=== PATIENT | male | born 1950 | race Two or more races ===

== ENCOUNTER → 2017-07-15 | Outpatient (CLI) | payer MEDICARE ==
--- NOTE | 2017-07-15 17:01 | Diagnostic Imaging Report ---
PROCEDURE: CT CHEST WITHOUT CONTRAST CT scan of the chest WITHOUT intravenous contrast, using standard protocol. TECHNIQUE: The chest was scanned utilizing a multidetector helical scanner from the apex to the level of the adrenal glands. No IV contrast was administered per physician's request. Coronal and sagittal multiplanar reformations were obtained. COMPARISON: None. INDICATIONS: SIMPLE CHRONIC BRONCHITIS FINDINGS: Exam mildly limited by breathing motion artifact in the lung bases. Lines/tubes: None. Lungs and Airways: Multiple linear opacities in the left lower lobe, likely represent subsegmental atelectasis or scarring. Focal atelectatic changes in the left lower lobe secondary to eventration of the left hemidiaphragm (best visualized on sagittal image 111). Somewhat wedge-shaped subpleural opacity posterior to the aorta in the left lower lobe (series 3, image 65 with mild swirling of adjacent vessels and bronchi. Linear opacities in the lateral right upper lobe (series 3, images 54-58 and sagittal image 29-32), likely reflect subsegmental atelectasis or scarring. Mild wall thickening in the central aspect of bronchi of the upper and lower lobes, more prominent in the lower lobes. No consolidation, or masses. Airways are clear, without endobronchial lesions. Pleura: No effusion, or pneumothorax. Heart and mediastinum: Thyroid is unremarkable. Mild to moderate cardiomegaly. Aorta is non-aneurysmal. Main pulmonary artery is enlarged, measuring approximately 3.3 cm. The Lymph nodes: No mediastinal, hilar, or axillary adenopathy. Abdomen: Limited nonenhanced views of the upper abdomen showed no abnormalities in the liver, spleen, pancreas, right kidney or adrenal glands. 2.0 x 1.7 cm simple cyst in the superior pole. The left kidney (series 2, image 110). Bones: No aggressive lytic lesions. Degenerative disc changes in the thoracic spine. Soft tissues are unremarkable. IMPRESSION: 1. mild wall thickening in the central aspect of bronchi in the upper and lower lobes, worse in the latter, likely reflecting sequela of chronic bronchitis. 2. Focal atelectatic changes in the left lower lobe secondary to eventration of the left hemidiaphragm. 3. Wedge-shaped subpleural opacity in the left lower lobe likely represents round atelectasis. Prior films, if available, would be helpful for comparison. If no prior films can be obtained, recommend followup chest CT in 2 months to document resolution or stability. 4. Enlarged pulmonary artery suggesting pulmonary hypertension. London Monterroso M.D. Dictated by: London Monterroso M.D. on 07/15/2017 at 17:02 Electronically approved by: London Monterroso M.D. on 07/15/2017 at 17:02
== END ==
LOC: CT 14:58
PROVIDERS: ATTEND Internal Medicine
DX: J41.0 Simple chronic bronchitis (principal)
CPT/HCPCS: 71250

== ENCOUNTER 2018-02-08 19:37 | Observation (INO) | payer MEDICARE ==
[~2018-02-08] VITALS: Ht 162.6 cm; Wt 66.0 kg
--- OUTSIDE RECORDS SUMMARY | 2018-02-08 19:40 | XMS REPORT | Clinical Summary ---
Author Author SIDRA Medius Organization [facility] [employer] 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 Active sodium bicarbonate 650 MG Take 2 0 tablet tablets by mouth 2 (two) times daily. Active pantoprazole (PROTONIX) Take 40 mg by 0 40 MG tablet mouth daily. Active folic acid (FOLVITE) 1 MG Take 1 mg by 0 tablet mouth daily. Active fenofibrate Take 160 mg 0 (TRIGLIDE,LOFIBRA) 160 MG by mouth tablet daily. Active patiromer calcium Take by mouth 0 sorbitex (VELTASSA) 8.4 daily. gram PwPk Active sodium polystyrene Take 15 g by 0 (KAYEXALATE) 15 gram/60 mouth daily. mL suspension Active Problems Patient Care Coordination Note Cardiology- Dr. Ely [phone] Problem Noted Date Stage 4 chronic kidney disease 12/29/2017 Pre-transplant evaluation for chronic kidney disease 12/29/2017 Secondary hypertension 12/29/2017 Encounters Care Team Description Date Type Specialty Bibiana Nielson RN 01/18/2018 Abstract Transplant Bibiana Nielson RN Pre-transplant evaluation for chronic kidney disease (Primary Dx); Stage 4 chronic kidney disease (HCC); Anemia of renal disease 01/18/2018 Orders Only Transplant Bibiana Nielson RN Committee Review 01/18/2018 Telephone Transplant ProviderEduard MD 01/17/2018 Orders Only Transplant Stage 4 chronic kidney disease (HCC); Pre-transplant evaluation for chronic kidney disease; Anemia of renal disease; Secondary hypertension; Abnormal blood chemistry 01/10/2018 Hospital Radiology Encounter Stage 4 chronic kidney disease (HCC); Pre-transplant evaluation for chronic kidney disease; Anemia of renal disease; Secondary hypertension; Abnormal blood chemistry 01/10/2018 Hospital Radiology Encounter Susan Rodriguez MD Stage 4 chronic kidney disease (HCC); Pre-transplant evaluation for chronic kidney disease; Anemia of renal disease; Secondary hypertension; Abnormal blood chemistry 01/10/2018 Orders Only Lab Susan Rodriguez MD Stage 4 chronic kidney disease (HCC); Pre-transplant evaluation for chronic kidney disease; Anemia of renal disease; Secondary hypertension; Abnormal blood chemistry 01/10/2018 Hospital Cardiology Encounter Susan Rodriguez MD Timmins, Katherine S., MD Pre-transplant evaluation for chronic kidney disease (Primary Dx) 12/29/2017 Evaluation Transplant Susan Rodriguez MD Pre-transplant evaluation for chronic kidney disease (Primary Dx) 12/29/2017 Evaluation Transplant Susan Rodriguez MD 12/29/2017 Evaluation Transplant Susan Rodriguez MD Stage 4 chronic kidney disease (HCC); Pre-transplant evaluation for chronic kidney disease; Anemia of renal disease; Secondary hypertension; Abnormal blood chemistry 12/29/2017 Orders Only Transplant Hepatology Susan Rodriguez MD Newby, Karen, RN Stage 4 chronic kidney disease (HCC); Pre-transplant evaluation for chronic kidney disease; Secondary hypertension 12/29/2017 Office Visit Transplant Susan Rodriguez MD Canceled (Patient) 12/29/2017 Evaluation Transplant ProviderEduard MD 12/29/2017 Orders Only Transplant Felicia Gongora Appointment (Per patients [id number] the patient will not be able to keep his appt today due to his son being sick and his son Josse is the one who will bringh him to the appt. Per Mrs. Cisneros please reschedule the appt to next Wednesday. She's aware the appt has been rescheduled to next Wednesday,12.29.17) 12/22/2017 Telephone Transplant Felicia Gongora Appointment (Per patient daughter in law will be here tomorrow for his appt and she's aware to check in at 7:30 am) 12/21/2017 Telephone Transplant Bibiana Nielson RN Stage 4 chronic kidney disease (HCC) (Primary Dx); Pre-transplant evaluation for chronic kidney disease; Anemia of renal disease; Secondary hypertension; Abnormal blood chemistry 12/15/2017 Orders Only Transplant Danielle Acevedo Kidney Transplant Pre-evaluation 11/18/2017 Telephone Transplant Danielle Acevedo 11/12/2017 Abstract Transplant Danielle Acevedo 11/11/2017 Abstract Transplant after 02/07/2017 Family History Medical History Relation Name Comments No Known Problem Brother No Known Problem Brother No Known Problem Daughter Hypertension Mother Cancer Sister breast No Known Problem Sister No Known Problem Sister No Known Problem Son No Known Problem Son Relation Name Status Comments Brother Alive Brother Alive Daughter Alive Father Mother Sister Alive Sister Alive Sister Alive Son Alive Son Alive Social History Date Tobacco Use Types Packs/Day Years Used Never Smoker Alcohol Use Drinks/Week oz/Week Comments No Sex Assigned at Date Recorded Not on file Industry Job Start Date Occupation Not on file Not on file Not on file Travel End Travel History Travel Start No recent travel history available. Last Filed Vital Signs Time Taken Vital Sign Reading 12/29/2017 12:00 PM CDT Blood Pressure 132/80 12/29/2017 12:00 PM CDT Pulse 56 12/29/2017 12:00 PM CDT Temperature 36.4 C (97.5 F) 12/29/2017 12:00 PM CDT Respiratory Rate 20 - Oxygen Saturation - - Inhaled Oxygen - Concentration 12/29/2017 12:00 PM CDT Weight 64.6 kg (142 lb 8 oz) 12/29/2017 12:00 PM CDT Height 160.8 cm (5' 3.29") 12/29/2017 12:00 PM CDT Body Mass Index 25.01 Plan of Treatment Health Maintenance Due Date Last Done Comments INFLUENZA VACCINE 12/27/2017 Procedures Comments Procedure Name Priority Date/Time Associated Diagnosis TRANSFUSION SERVICE 01/11/2018 REPORT - SCAN 6:00 PM CDT US PELVIS WITH DOPPLER Routine 01/10/2018 Stage 4 chronic kidney 11:42 AM CDT disease (HCC) Pre-transplant evaluation for chronic kidney disease Anemia of renal disease Secondary hypertension Abnormal blood chemistry US ABDOMEN COMPLETE Routine 01/10/2018 Stage 4 chronic kidney 11:28 AM CDT disease (HCC) Pre-transplant evaluation for chronic kidney disease Anemia of renal disease Secondary hypertension Abnormal blood chemistry ECG 12-LEAD Routine 01/10/2018 Stage 4 chronic kidney 10:37 AM CDT disease (HCC) Pre-transplant evaluation for chronic kidney disease Anemia of renal disease Secondary hypertension Abnormal blood chemistry TYPE AND SCREEN, Routine 01/10/2018 Stage 4 chronic kidney AUTOMATED 10:24 AM CDT disease (HCC) Pre-transplant evaluation for chronic kidney disease Anemia of renal disease Secondary hypertension Abnormal blood chemistry LIPID PANEL Routine 01/10/2018 Stage 4 chronic kidney 10:24 AM CDT disease (HCC) Pre-transplant evaluation for chronic kidney disease Anemia of renal disease Secondary hypertension Abnormal blood chemistry TRANSFUSION SERVICE 12/30/2017 REPORT - SCAN 6:04 PM CDT FLOW PRA CLASS I WITH Routine 12/29/2017 Stage 4 chronic kidney REFLEX TO ANTIBODY 11:10 AM CDT disease (HCC) SPECIFICITY Pre-transplant evaluation for chronic kidney disease Anemia of renal disease Secondary hypertension Abnormal blood chemistry FLOW PRA CLASS II WITH Routine 12/29/2017 Stage 4 chronic kidney REFLEX TO ANTIBODY 11:10 AM CDT disease (HCC) SPECIFICITY Pre-transplant evaluation for chronic kidney disease Anemia of renal disease Secondary hypertension Abnormal blood chemistry HLA TYPING CI Routine 12/29/2017 Stage 4 chronic kidney 11:10 AM CDT disease (HCC) Pre-transplant evaluation for chronic kidney disease Anemia of renal disease Secondary hypertension Abnormal blood chemistry HLA TYPING CII Routine 12/29/2017 Stage 4 chronic kidney 11:10 AM CDT disease (HCC) Pre-transplant evaluation for chronic kidney disease Anemia of renal disease Secondary hypertension Abnormal blood chemistry T SPOT TB Routine 12/29/2017 Stage 4 chronic kidney 11:10 AM CDT disease (HCC) Pre-transplant evaluation for chronic kidney disease Anemia of renal disease Secondary hypertension Abnormal blood chemistry CBC W/PLT COUNT & AUTO Routine 12/29/2017 Stage 4 chronic kidney DIFFERENTIAL 11:09 AM CDT disease (HCC) Pre-transplant evaluation for chronic kidney disease Anemia of renal disease Secondary hypertension Abnormal blood chemistry HEMOGLOBIN A1C Routine 12/29/2017 Stage 4 chronic kidney 11:09 AM CDT disease (HCC) Pre-transplant evaluation for chronic kidney disease Anemia of renal disease Secondary hypertension Abnormal blood chemistry URINALYSIS W/ MICROSCOPIC Routine 12/29/2017 Stage 4 chronic kidney 11:09 AM CDT disease (HCC) Pre-transplant evaluation for chronic kidney disease Anemia of renal disease Secondary hypertension Abnormal blood chemistry PT/APTT Routine 12/29/2017 Stage 4 chronic kidney 11:09 AM CDT disease (HCC) Pre-transplant evaluation for chronic kidney disease Anemia of renal disease Secondary hypertension Abnormal blood chemistry PTH, INTACT Routine 12/29/2017 Stage 4 chronic kidney 11:09 AM CDT disease (HCC) Pre-transplant evaluation for chronic kidney disease Anemia of renal disease Secondary hypertension Abnormal blood chemistry CBC W/PLT COUNT & AUTO Routine 12/29/2017 Stage 4 chronic kidney DIFFERENTIAL 11:09 AM CDT disease ([facility]) Pre-transplant evaluation for chronic kidney disease Anemia of renal disease Secondary hypertension Abnormal blood chemistry URINE CULTURE Routine 12/29/2017 Stage 4 chronic kidney 11:09 AM CDT disease ([facility]) Pre-transplant evaluation for chronic kidney disease Anemia of renal disease Secondary hypertension Abnormal blood chemistry BLOOD TYPING, AUTOMATED Routine 12/29/2017 Stage 4 chronic kidney 11:08 AM CDT disease ([facility]) Pre-transplant evaluation for chronic kidney disease Anemia of renal disease Secondary hypertension Abnormal blood chemistry DIRECT AHG (TOMER)/DIRECT Routine 12/29/2017 Stage 4 chronic kidney CAMILO 11:08 AM CDT disease ([facility]) Pre-transplant evaluation for chronic kidney disease Anemia of renal disease Secondary hypertension Abnormal blood chemistry VARICELLA ZOSTER Routine 12/29/2017 Stage 4 chronic kidney ANTIBODY, IGG 11:08 AM CDT disease ([facility]) Pre-transplant evaluation for chronic kidney disease Anemia of renal disease Secondary hypertension Abnormal blood chemistry URIC ACID Routine 12/29/2017 Stage 4 chronic kidney 11:08 AM CDT disease (HCC) Pre-transplant evaluation for chronic kidney disease Anemia of renal disease Secondary hypertension Abnormal blood chemistry RPR Routine 12/29/2017 Stage 4 chronic kidney 11:08 AM CDT disease (HCC) Pre-transplant evaluation for chronic kidney disease Anemia of renal disease Secondary hypertension Abnormal blood chemistry PHOSPHORUS Routine 12/29/2017 Stage 4 chronic kidney 11:08 AM CDT disease (HCC) Pre-transplant evaluation for chronic kidney disease Anemia of renal disease Secondary hypertension Abnormal blood chemistry LACTATE DEHYDROGENASE Routine 12/29/2017 Stage 4 chronic kidney (LDH) 11:08 AM CDT disease (HCC) Pre-transplant evaluation for chronic kidney disease Anemia of renal disease Secondary hypertension Abnormal blood chemistry HIV-1 ANTIGEN WITH Routine 12/29/2017 Stage 4 chronic kidney HIV-1/2 ANTIBODY 11:08 AM CDT disease (HCC) Pre-transplant evaluation for chronic kidney disease Anemia of renal disease Secondary hypertension Abnormal blood chemistry HEPATITIS C ANTIBODY Routine 12/29/2017 Stage 4 chronic kidney 11:08 AM CDT disease (HCC) Pre-transplant evaluation for chronic kidney disease Anemia of renal disease Secondary hypertension Abnormal blood chemistry HEPATITIS B CORE Routine 12/29/2017 Stage 4 chronic kidney ANTIBODY, IGM 11:08 AM CDT disease (HCC) Pre-transplant evaluation for chronic kidney disease Anemia of renal disease Secondary hypertension Abnormal blood chemistry HEPATITIS B SURFACE Routine 12/29/2017 Stage 4 chronic kidney ANTIGEN 11:08 AM CDT disease (HCC) Pre-transplant evaluation for chronic kidney disease Anemia of renal disease Secondary hypertension Abnormal blood chemistry HEPATITIS B SURFACE Routine 12/29/2017 Stage 4 chronic kidney ANTIBODY 11:08 AM CDT disease (HCC) Pre-transplant evaluation for chronic kidney disease Anemia of renal disease Secondary hypertension Abnormal blood chemistry GAMMA GLUTAMYL Routine 12/29/2017 Stage 4 chronic kidney TRANSFERASE (GGT) 11:08 AM CDT disease (HCC) Pre-transplant evaluation for chronic kidney disease Anemia of renal disease Secondary hypertension Abnormal blood chemistry EBV ANTIBODY, IGM Routine 12/29/2017 Stage 4 chronic kidney 11:08 AM CDT disease (HCC) Pre-transplant evaluation for chronic kidney disease Anemia of renal disease Secondary hypertension Abnormal blood chemistry EBV ANTIBODY, IGG Routine 12/29/2017 Stage 4 chronic kidney 11:08 AM CDT disease (HCC) Pre-transplant evaluation for chronic kidney disease Anemia of renal disease Secondary hypertension Abnormal blood chemistry COMPREHENSIVE METABOLIC Routine 12/29/2017 Stage 4 chronic kidney PANEL 11:08 AM CDT disease (HCC) Pre-transplant evaluation for chronic kidney disease Anemia of renal disease Secondary hypertension Abnormal blood chemistry CYTOMEGALOVIRUS ANTIBODY, Routine 12/29/2017 Stage 4 chronic kidney IGM 11:08 AM CDT disease (HCC) Pre-transplant evaluation for chronic kidney disease Anemia of renal disease Secondary hypertension Abnormal blood chemistry CYTOMEGALOVIRUS ANTIBODY, Routine 12/29/2017 Stage 4 chronic kidney IGG 11:08 AM CDT disease (HCC) Pre-transplant evaluation for chronic kidney disease Anemia of renal disease Secondary hypertension Abnormal blood chemistry US RETROPERITONEAL Routine 10/25/[address] CHEST WITHOUT IV Routine 07/15/2017 CONTRAST 2D ECHO W/ DOPPLER Routine 05/27/2017 (CW/PW/COLOR) 2D ECHO W DOPPLER Routine 05/27/2017 (CW/PW/COLOR) - SLMT NM MYOCARDIAL PERFUSION Routine 05/27/2017 SPECT, PHARM(LEXISCAN) after 02/07/2017 Results * TRANSFUSION SERVICE REPORT - SCAN (01/11/2018 6:00 PM CDT) Only the most recent of 2 results within the time period is included. Narrative Performed At * US pelvis with doppler (01/10/2018 11:42 AM CDT) Narrative Performed At FINAL REPORT [facility] Abdominal ultrasound dated 01/10/2018 Clinical information:assess iliac vessels Comment:Real-time transabdominal ultrasound was performed. Liver is normal in size and measures 15.4 cm in length. The echogenicity of the liver is normal.No focal lesion is noted in the liver.Spleen is normal in size without focal abnormality. Gallbladder is contracted. No gallstone is present. No biliary dilatation is seen. Common bile duct measures 2 mm in diameter.Main portal vein measures 8 mm in diameter. Pancreas is unremarkable. Right kidney measures 9.5 x 4.3 x 4.0 cm.Left kidney measures 8.9 x 4.0 x 4.3 cm.Echogenicity of both kidney is increased.No hydronephrosis or solid mass seen in either kidney.No cystis seen in the either kidney. No ascites is present in the abdomen. Abdominal aorta is normal in caliber. IVC and Hepatic veins are patent. Impression: 1. Small echogenic kidneys suggestive of renal parenchymal disease. 2. Otherwise unremarkable abdominal ultrasound. Pelvic ultrasound dated 01/10/2018. COMMENT: Real-time transpelvic ultrasound was performed. Color Doppler and spectral analysis of hepatic vasculature were obtained. The distal abdominal aorta is normal in caliber measuring 1.5. The right common iliac artery measures 0.7 cm. The right external iliac artery measures 0.7. The right internal iliac artery is not visualized. The left common iliac artery measures 1.0 cm. The left external iliac artery measures 1.0 cm. The left internal iliac artery is not visualized. The bilateral common and external iliac veins are patent. IMPRESSION: Unremarkable pelvic vasculature. Signed: Beverly Mosqueda MD Report Verified Date/Time:01/10/2018 18:50:43 Reading Location: [facility] [id number] Ultrasound Reading Room Procedure Note Interface, External Ris In - 01/10/2018 6:52 PM CDT FINAL REPORT Abdominal ultrasound dated 01/10/2018 Clinical information:assess iliac vessels Comment: Real-time transabdominal ultrasound was performed. Liver is normal in size and measures 15.4 cm in length. The echogenicity of the liver is normal. No focal lesion is noted in the liver. Spleen is normal in size without focal abnormality. Gallbladder is contracted. No gallstone is present. No biliary dilatation is seen. Common bile duct measures 2 mm in diameter. Main portal vein measures 8 mm in diameter. Pancreas is unremarkable. Right kidney measures 9.5 x 4.3 x 4.0 cm. Left kidney measures 8.9 x 4.0 x 4.3 cm. Echogenicity of both kidney is increased. No hydronephrosis or solid mass seen in either kidney. No cyst is seen in the either kidney. No ascites is present in the abdomen. Abdominal aorta is normal in caliber. IVC and Hepatic veins are patent. Impression: 1. Small echogenic kidneys suggestive of renal parenchymal disease. 2. Otherwise unremarkable abdominal ultrasound. Pelvic ultrasound dated 01/10/2018. COMMENT: Real-time transpelvic ultrasound was performed. Color Doppler and spectral analysis of hepatic vasculature were obtained. The distal abdominal aorta is normal in caliber measuring 1.5. The right common iliac artery measures 0.7 cm. The right external iliac artery measures 0.7. The right internal iliac artery is not visualized. The left common iliac artery measures 1.0 cm. The left external iliac artery measures 1.0 cm. The left internal iliac artery is not visualized. The bilateral common and external iliac veins are patent. IMPRESSION: Unremarkable pelvic vasculature. Signed: Beverly Mosqueda MD Report Verified Date/Time: 01/10/2018 18:50:43 Reading Location: [facility] [id number] Ultrasound Reading Room Performing Organization Address City/State/Zipcode Phone Number [facility] * US abdomen complete (01/10/2018 11:28 AM CDT) Narrative Performed At FINAL REPORT [facility] Abdominal ultrasound dated 01/10/2018 Clinical information:assess iliac vessels Comment:Real-time transabdominal ultrasound was performed. Liver is normal in size and measures 15.4 cm in length. The echogenicity of the liver is normal.No focal lesion is noted in the liver.Spleen is normal in size without focal abnormality. Gallbladder is contracted. No gallstone is present. No biliary dilatation is seen. Common bile duct measures 2 mm in diameter.Main portal vein measures 8 mm in diameter. Pancreas is unremarkable. Right kidney measures 9.5 x 4.3 x 4.0 cm.Left kidney measures 8.9 x 4.0 x 4.3 cm.Echogenicity of both kidney is increased.No hydronephrosis or solid mass seen in either kidney.No cystis seen in the either kidney. No ascites is present in the abdomen. Abdominal aorta is normal in caliber. IVC and Hepatic veins are patent. Impression: 1. Small echogenic kidneys suggestive of renal parenchymal disease. 2. Otherwise unremarkable abdominal ultrasound. Pelvic ultrasound dated 01/10/2018. COMMENT: Real-time transpelvic ultrasound was performed. Color Doppler and spectral analysis of hepatic vasculature were obtained. The distal abdominal aorta is normal in caliber measuring 1.5. The right common iliac artery measures 0.7 cm. The right external iliac artery measures 0.7. The right internal iliac artery is not visualized. The left common iliac artery measures 1.0 cm. The left external iliac artery measures 1.0 cm. The left internal iliac artery is not visualized. The bilateral common and external iliac veins are patent. IMPRESSION: Unremarkable pelvic vasculature. Signed: Beverly Mosqueda MD Report Verified Date/Time:01/10/2018 18:50:43 Reading Location: [facility] [id number] Ultrasound Reading Room Procedure Note Interface, External Ris In - 01/10/2018 6:52 PM CDT FINAL REPORT Abdominal ultrasound dated 01/10/2018 Clinical information:assess iliac vessels Comment: Real-time transabdominal ultrasound was performed. Liver is normal in size and measures 15.4 cm in length. The echogenicity of the liver is normal. No focal lesion is noted in the liver. Spleen is normal in size without focal abnormality. Gallbladder is contracted. No gallstone is present. No biliary dilatation is seen. Common bile duct measures 2 mm in diameter. Main portal vein measures 8 mm in diameter. Pancreas is unremarkable. Right kidney measures 9.5 x 4.3 x 4.0 cm. Left kidney measures 8.9 x 4.0 x 4.3 cm. Echogenicity of both kidney is increased. No hydronephrosis or solid mass seen in either kidney. No cyst is seen in the either kidney. No ascites is present in the abdomen. Abdominal aorta is normal in caliber. IVC and Hepatic veins are patent. Impression: 1. Small echogenic kidneys suggestive of renal parenchymal disease. 2. Otherwise unremarkable abdominal ultrasound. Pelvic ultrasound dated 01/10/2018. COMMENT: Real-time transpelvic ultrasound was performed. Color Doppler and spectral analysis of hepatic vasculature were obtained. The distal abdominal aorta is normal in caliber measuring 1.5. The right common iliac artery measures 0.7 cm. The right external iliac artery measures 0.7. The right internal iliac artery is not visualized. The left common iliac artery measures 1.0 cm. The left external iliac artery measures 1.0 cm. The left internal iliac artery is not visualized. The bilateral common and external iliac veins are patent. IMPRESSION: Unremarkable pelvic vasculature. Signed: Beverly Mosqueda MD Report Verified Date/Time: 01/10/2018 18:50:43 Reading Location: [facility] [id number] Ultrasound Reading Room Performing Organization Address City/[facility] Phone Number GE RIS * ECG 12 lead (01/10/2018 10:37 AM CDT) Narrative Performed At Ventricular Rate 52 BPM GE MUSE Atrial Rate 52 BPM P-R Interval 144 ms QRS Duration 86 ms Q-T Interval 412 ms QTC Calculation(Bazett) 383 ms P [place] 36 degrees R [place] 45 degrees T [place] 71 degrees Sinus bradycardia Nonspecific T wave abnormality Abnormal ECG No previous ECGs available Confirmed by MD LAI PABLO ([id number]) on 01/10/2018 6:05:24 PM Procedure Note Interface, External Ris In - 01/10/2018 6:05 PM CDT Ventricular Rate 52 BPM Atrial Rate 52 BPM P-R Interval 144 ms QRS Duration 86 ms Q-T Interval 412 ms QTC Calculation(Bazett) 383 ms P [place] 36 degrees R [place] 45 degrees T [place] 71 degrees Sinus bradycardia Nonspecific T wave abnormality Abnormal ECG No previous ECGs available Confirmed by MD LAI PABLO ([id number]) on 01/10/2018 6:05:24 PM Performing Organization Address [facility] Phone Number GE MUSE * Type and Screen, Automated (01/10/2018 10:24 AM CDT) ABO/RH AUTOMATED (BEAKER) O POSITIVE [facility] Ab Scrn NEGATIVE [facility] Specimen Blood Performing Organization Address City/[facility]/Zipcode Phone Number [facility] [address] [place] [address] MEDICAL CENTER * Lipid panel (01/10/2018 10:24 AM CDT) Triglycerides 90 mg/dL [facility] Cholesterol 83 mg/dL [facility] HDL 16 mg/dL [facility] LDL Calculated 49 mg/dL [facility] Specimen Blood Narrative Performed At Triglyceride Reference Range: [facility] Low Risk <150 [facility] [id number] High Risk 200-499 Very High Risk>=500 Cholesterol Reference Range: Low Risk <200 [id number] High Risk>240 HDL Cholesterol Reference Range: Low Risk >=60 High Risk <40 LDL Cholesterol Reference Range: Optimal<100 Near [id number] Szbp350-258 Very High >=190 Performing Organization Address City/[facility] Phone Number [facility] [address] [place], [place] [phone] [facility] * HLA TYPING CII (12/29/2017 11:10 AM CDT) HLA-DR AG1 [address] [facility] HLA TESTING HLA-DR AG2 [address] [facility] HLA TESTING HLA-DR AG3-[address] [facility] HLA TESTING HLA-DR AG3-[address] [facility] HLA TESTING HLA-DR AG4-[address] [facility] HLA TESTING HLA-DR AG4-[address] [facility] HLA TESTING HLA-DR AG5-[address] [facility] HLA TESTING HLA-DR AG5-[address] [facility] HLA TESTING HLA-DQA1 AG 1-[address] [facility] HLA TESTING HLA-DQA1 AG 1-[address] [facility] HLA TESTING HLA-DQB1 AG 1-[address] [facility] HLA TESTING HLA-DQB1 AG 1-[address] [facility] HLA TESTING HLA-DPA1 AG 1-[address] [facility] HLA TESTING HLA-DPA1 AG 1-[address] [facility] HLA TESTING HLA-DPB1 AG 1-1 02:[address] [facility] HLA TESTING HLA-DPB1 AG 1-2 13:[address] [facility] HLA TESTING HLA-AG Notes [facility] HLA TESTING HLA-AG Report Comments [facility] HLA TESTING Specimen Blood Narrative Performed At Disclaimer: [facility] HLA TESTING This test was developed and its performance characteristics determined by the [facility]. It has not been cleared or approved by the U.S. Food and Drug Administration. The FDA has determined that such clearance or approval is not necessary. This test is used for clinical purposes. It should not be regarded as investigational or for research. This laboratory is certified under the Clinical Laboratory Improvement Amendments of 1988 (CLIA-88) as qualified to perform high complexity clinical laboratory testing. Performing Organization Address City/State/[facility] Phone Number [facility] HLA TESTING ONE Stanislav Jose, MS: [id number], [place] [address] CLIA#[id number] CAP#[id number] UNOS#[id number] * HLA TYPING CI (12/29/2017 11:10 AM CDT) HLA-A AG1 [address] [facility] HLA TESTING HLA-A AG2 [address] [facility] HLA TESTING HLA-B AG1 [address] [facility] HLA TESTING HLA-B AG2 [address] [facility] HLA TESTING HLA-C AG1 [address] [facility] HLA TESTING HLA-C AG2 [address] [facility] HLA TESTING HLA-B BW1 [address] [facility] HLA TESTING HLA-B BW2 [address] [facility] HLA TESTING HLA-AG Notes [facility] HLA TESTING HLA-AG Report Comments [facility] HLA TESTING Specimen Blood Narrative Performed At Disclaimer: [facility] HLA TESTING This test was developed and its performance characteristics determined by the [facility]. It has not been cleared or approved by the U.S. Food and Drug Administration. The FDA has determined that such clearance or approval is not necessary. This test is used for clinical purposes. It should not be regarded as investigational or for research. This laboratory is certified under the Clinical Laboratory Improvement Amendments of 1988 (CLIA-88) as qualified to perform high complexity clinical laboratory testing. Performing Organization Address City/[facility] Phone Number [facility] HLA TESTING ONE Stanislav Garcia, MS: [id number], [place] [address] CLIA#[id number] CAP#[id number] UNOS#[id number] * FLOW PRA CLASS II WITH REFLEX TO ANTIBODY SPECIFICITY (12/29/2017 11:10 AM CDT) Flow Class II Percent [address] [facility] HLA TESTING Positive Flow Class Report [facility] HLA TESTING Comments Specimen Blood Narrative Performed At Disclaimer: [facility] HLA TESTING This test was developed and its performance characteristics determined by the [facility]. It has not been cleared or approved by the U.S. Food and Drug Administration. The FDA has determined that such clearance or approval is not necessary. This test is used for clinical purposes. It should not be regarded as investigational or for research. This laboratory is certified under the Clinical Laboratory Improvement Amendments of 1988 (CLIA-88) as qualified to perform high complexity clinical laboratory testing. Performing Organization Address City/State/[facility]code Phone Number [facility] HLA TESTING ONE Stanislav Garcia, MS: [id number], [place] [address] CLIA#[id number] CAP#[id number] UNOS#[id number] * FLOW PRA CLASS I WITH REFLEX TO ANTIBODY SPECIFICITY (12/29/2017 11:10 AM CDT) Flow Class I Percent [address] [facility] HLA TESTING Positive Flow Class Report [facility] HLA TESTING Comments Specimen Blood Narrative Performed At Disclaimer: [facility] HLA TESTING This test was developed and its performance characteristics determined by the [facility]. It has not been cleared or approved by the U.S. Food and Drug Administration. The FDA has determined that such clearance or approval is not necessary. This test is used for clinical purposes. It should not be regarded as investigational or for research. This laboratory is certified under the Clinical Laboratory Improvement Amendments of 1988 (CLIA-88) as qualified to perform high complexity clinical laboratory testing. Performing Organization Address City/[facility] Phone Number [facility] HLA TESTING ONE Stanislav Garcia, MS: [id number], [place] [address] CLIA#[id number] CAP#[id number] UNOS#[id number] * T Spot TB (12/29/2017 11:10 AM CDT) T-Spot TB Negative [facility] Neg Ctrl Spot Count 0 [facility] Panel A Spot 0 [facility] Panel B Spot 0 [facility] Pos Ctrl Spot Ct 0 [facility] Scan Result [facility] Specimen Blood Narrative Performed At Performing Organization Address City/[facility] Phone Number [facility] [address] [place] [address] LABORATORIES 100 * PT/aPTT (12/29/2017 11:09 AM CDT) Protime 15.8 (H) 11.7 - 14.7 seconds [facility] INR 1.3 <=5.9 [facility] PTT 28.8 22.5 - 36.0 seconds [facility] Specimen Blood Narrative Performed At RECOMMENDED COUMADIN/WARFARIN INR THERAPY RANGES [facility] STANDARD DOSE: 2.0 - 3.0 Includes: PROPHYLAXIS for venous thrombosis, [facility] systemic embolization; TREATMENT for venous thrombosis and/or pulmonary embolus. HIGH RISK: Target INR is 2.5-3.5 for patients with mechanical heart valves. Performing Organization Address [facility] Phone Number [facility] [address] [place] [address] MEDICAL CENTER * CBC with platelet count + automated diff (12/29/2017 11:09 AM CDT) WBC 6.2 3.5 - 10.5 K/L [facility] RBC 2.80 (L) 4.63 - 6.08 M/L [facility] Hemoglobin 8.5 (L) 13.7 - 17.5 GM/DL [facility] Hematocrit 28.0 (L) 40.1 - 51.0 % [facility] MCV 100.0 (H) 79.0 - 92.2 fL [facility] MCH 30.4 25.7 - 32.2 pg [facility] MCHC 30.4 (L) 32.3 - 36.5 GM/DL [facility] RDW 16.4 (H) 11.6 - 14.4 % [facility] Platelets 206 150 - 450 K/CU MM [facility] MPV 11.9 9.4 - 12.4 fL [facility] nRBC 0 0 - 0 /100 WBC [facility] % Neutros 67 % [facility] % Lymphs 20 % [facility] % Monos 6 % [facility] % Eos 6 % [facility] % Baso 1 % [facility] # Neutros 4.13 1.78 - 5.38 K/L [facility] # Lymphs 1.24 (L) 1.32 - 3.57 K/L [facility] # Monos 0.35 0.30 - 0.82 K/L [facility] # Eos 0.36 0.04 - 0.54 K/L [facility] # Baso 0.06 0.01 - 0.08 K/L [facility] Immature 0 0 - 1 % [facility] Granulocytes-Relative [facility] Specimen Blood Performing Organization Address City/[facility]/Zipcode Phone Number [facility] [address] [place] [address] [facility] * Urinalysis, Routine (12/29/2017 11:09 AM CDT) Color, UA Light Yellow [facility] Clarity, UA Clear [facility] Specific Fisk, UA 1.009 1.001 - 1.035 [facility] pH, UA 5.5 5.0 - 8.0 [facility] Protein, UA 30 mg/dL (A) Negative [facility] Glucose, UA Negative Negative [facility] Ketones, UA Negative Negative [facility] Bilirubin, UA Negative Negative [facility] Blood, UA Negative Negative [facility] Nitrite, UA Negative Negative [facility] Leukocytes, UA Negative Negative [facility] Urobilinogen, UA 0.2 0.2 - 1.0 mg/dL [facility] RBC, UA 0 /HPF [facility] WBC, UA <1 /HPF [facility] Bacteria, UA Occasional [facility] Mucus Occasional [facility] Hyaline Casts, UA 2 /LPF [facility] Specimen Source [facility] Specimen Urine Performing Organization Address [facility]/Zipcode Phone Number [facility] [address] [place], [place] [phone] [place] [address] * Urine Culture (12/29/2017 11:09 AM CDT) Result No growth [facility] Specimen Urine - Urine, Unspecified Source Performing Organization Address [facility] Phone Number [phone] [place] [address] * PTH, Intact (12/29/2017 11:09 AM CDT) PTH 188.6 (H) 8.5 - 72.5 pg/mL [facility] Specimen Blood Performing Organization Address [facility] Phone Number [address] * Hemoglobin A1c (12/29/2017 11:09 AM CDT) Hemoglobin A1C 4.2 (L) 4.3 - 6.1 % [facility] Specimen Blood Performing Organization Address City/[facility] Phone Number [phone] [place] [address] * HIV-1 Antigen with HIV-1/2 Antibody (12/29/2017 11:08 AM CDT) HIV-1 Antigen with HIV NON-REACTIVE Nonreactive [facility] 1&2 Antibody [facility] Specimen Blood Performing Organization Address City/[facility] Phone Number [address] * Hepatitis C Antibody (12/29/2017 11:08 AM CDT) Hepatitis C Ab NON-REACTIVE Nonreactive [facility] Specimen Blood Performing Organization Address [facility] Phone Number [address] * Cytomegalovirus antibody, IgM (12/29/2017 11:08 AM CDT) CMV IGM Negative Negative, Equivocal [facility] Specimen Blood Narrative Performed At CMV IgM Result Interpretation: [facility] </=0.8 Al Negative [facility] 0.9-1.0 Al Equivocal >/=1.1 Al Positive Performing Organization Address City/[facility] Phone Number [address] * Hepatitis B core antibody, IgM (12/29/2017 11:08 AM CDT) Hep B C IgM NON-REACTIVE Nonreactive [facility] Specimen Blood Performing Organization Address [facility] Phone Number [address] * EBV-VCA antibody, IgM (12/29/2017 11:08 AM CDT) GERARDO LEVINE VIRAL CAPSID Negative Negative, Equivocal [facility] ANTIGEN IGM [facility] Specimen Blood Narrative Performed At Gerardo Levine Viral Capsid Antigen IgM Result Interpretation: [facility] </=0.8 Al Negative [facility] 0.9-1.0 Al Equivocal >/=1.1 Al Positive Performing Organization Address [facility] Phone Number [address] * EBV-VCA antibody, IgG (12/29/2017 11:08 AM CDT) GERARDO LEVINE VIRAL CAPSID Positive (A) Negative, Equivocal [facility] ANTIGEN IGG [facility] Specimen Blood Narrative Performed At Gerardo Levine Viral Capsid Antigen IgG Result Interpretation: [facility] </=0.8 Al Negative [facility] 0.9-1.0 Al Equivocal >/=1.1 Al Positive Performing Organization Address [facility]code Phone Number [address] * Blood typing, automated (12/29/2017 11:08 AM CDT) ABO/RH AUTOMATED (BEAKER) O POSITIVE [facility] Specimen Blood Performing Organization Address City/[facility]code Phone Number [phone] [place] [address] * RPR (12/29/2017 11:08 AM CDT) RPR Nonreactive Nonreactive [facility] Specimen Blood Performing Organization Address [facility] Phone Number [phone] [place] [address] * Hepatitis B surface antibody (12/29/2017 11:08 AM CDT) Hep B S Ab 19.5 (H) <8.0 mIU/mL [facility] Specimen Blood Performing Organization Address [facility] Phone Number [address] * Hepatitis B surface antigen (12/29/2017 11:08 AM CDT) hepatitis B Surface Ag NON-REACTIVE Nonreactive [facility] Specimen Blood Performing Organization Address [facility] Phone Number [address] * Cytomegalovirus antibody, IgG (12/29/2017 11:08 AM CDT) CYTOMEGALOVIRUS, IGG Positive (A) Negative, Equivocal [facility] Specimen Blood Narrative Performed At CMV IgG Result Interpretation: [facility] </=0.8 Al Negative [facility] 0.9-1.0 Al Equivocal >/=1.1 AlPositive Performing Organization Address [facility] Phone Number [address] * Direct AHG (TOMER)/Direct Camilo (12/29/2017 11:08 AM CDT) Direct AHG-IGG NEGATIVE [facility] Direct AHG-C3B, C3D NEGATVIE [facility] Specimen Blood Performing Organization Address [facility]/State/Zipcode Phone Number [address] * Varicella Zoster Antibody, IgG (12/29/2017 11:08 AM CDT) Varicella IgG 4.1 [facility] Specimen Blood Narrative Performed At VARICELLA ZOSTER RESULT INTERPRETATIONS: [facility] <=0.8 AlNonreactive:Presumed non-immune to VZV [facility] 0.9-1.0 AlEquivocal >=1.1 AlReactive:Presumed immune to VZV Performing Organization Address City/[facility] Phone Number [address] * Uric Acid (12/29/2017 11:08 AM CDT) Uric Acid 8.7 (H) 2.6 - 7.2 mg/dL [facility] Specimen Blood Performing Organization Address City/[facility] Phone Number [address] * Phosphorus (12/29/2017 11:08 AM CDT) Phosphorus 3.2 2.3 - 4.7 mg/dL [facility] Specimen Blood Performing Organization Address City/[facility] Phone Number [address] * Lactate Dehydrogenase (LDH) (12/29/2017 11:08 AM CDT) LDH 210 125 - 220 U/L [facility] Specimen Blood Performing Organization Address City/[facility] Phone Number [address] * Gamma Glutamyl Transferase (GGT) (12/29/2017 11:08 AM CDT) GGT 21 9 - 64 U/L [facility] Specimen Blood Performing Organization Address City/[facility] Phone Number [place] [address] [place] [address] [facility] * Comprehensive metabolic panel (12/29/2017 11:08 AM CDT) Protein, Total 6.5 6.0 - 8.3 gm/dL [facility] Albumin 3.8 3.5 - 5.0 g/dL [facility] Alkaline Phosphatase 45 40 - 150 U/L [facility] Total Bilirubin 0.6 0.2 - 1.2 mg/dL [facility] Sodium 136 136 - 145 meq/L [facility] Potassium 5.5 (H) 3.5 - 5.1 meq/L [facility] Chloride 116 (H) 98 - 107 meq/L [facility] CO2 14 (L) 22 - 29 meq/L [facility] BUN 25 (H) 7 - 21 mg/dL [facility] Creatinine 4.05 (H) 0.57 - 1.25 mg/dL [facility] Glucose 97 70 - 105 mg/dL [facility] Calcium 9.3 8.4 - 10.2 mg/dL [facility] AST 52 (H) 5 - 34 U/L [facility] ALT 30 6 - 55 U/L [facility] EGFR 15Comment: ESTIMATED GFR IS mL/min/1.73 sq m [facility] NOT ACCURATE CREATININE [facility] CLEARANCE IN PREDICTING GLOMERULAR FILTRATION RATE. ESTIMATED GFR IS NOT APPLICABLE FOR DIALYSIS PATIENTS. Specimen Blood Performing Organization Address City/State/Zipcode Phone Number [place] [phone] [place], [place] [phone] [facility] * Ultrasound retroperitoneal complete (10/25/2017) Narrative Performed At * CT chest without IV contrast (07/15/2017) Narrative Performed At * 2D Echo W/Doppler(CW/PW/Color) (05/27/2017) Narrative Performed At * NM myocardial perfusion SPECT,pharm(LEXISCAN) (05/27/2017) Narrative Performed At * 2D echo w doppler (CW/PW/color) - SL[facility] (05/27/2017) Narrative Performed At after 02/07/2017 Insurance Payer Benefit Subscriber ID Type Phone Address Plan / Group MEDICARE MEDICARE A xxxxxxxxxxx Medicare B MEDICAID MEDICAID xxxxxxxxx [place]
--- OUTSIDE RECORDS SUMMARY | 2018-02-08 19:41 | XMS REPORT ---
Author Author [facility] Address Unknown Phone Unavailable Care Team Providers Care Freelance Data Entry Name Role Phone Baldomero IRWIN Unavailable Unavailable Willam MINAYA Unavailable Unavailable Problems This patient has no known problems. Allergies, Adverse Reactions, Alerts This patient has no known allergies or adverse reactions. Medications This patient has no known medications. Results Test Description Test Time Test Comments Text Results Atomic Results Result Comments U/S, ABDOMINAL, COMPLETE 2018-01-10 18:50:00 Reason for Exam:->pre transplant evaluation FINAL REPORT Abdominal ultrasound dated 01/10/2018 Clinical [...] Small echogenic kidneys suggestive of renal parenchymal disease.2. Otherwise unremarkable abdom inal ultrasound. Pelvic ultrasound dated 01/10/2018. COMMENT: Real-time [...] and external iliac veins are patent. IMPRESSION: Un remarkable pelvic vasculature. Signed: Beverly Mosquedaort Verified Date/Time: 01/10/2018 18:50:43 Reading Location: [address] Ultrasound Reading Room U/S, PELVIS, WITH DOPPLER 2018-01-10 18:50:00 Reason for Exam:->assess iliac vessels FINAL REPORT Abdominal ultrasound dated 01/10/2018 Clinical [...] Small echogenic kidneys suggestive of renal parenchymal disease.2. Otherwise unremarkable abdom inal ultrasound. Pelvic ultrasound dated 01/10/2018. COMMENT: Real-time [...] and external iliac veins are patent. IMPRESSION: Un remarkable pelvic vasculature. Signed: Beverly Mosqueda Verified Date/Time: 01/10/2018 18:50:43 Reading Location: [facility] [id number] Ultrasound Reading Room D PANEL 2018-01-10 11:11:00 TRIGLYCERIDES (BEAKER) (test uawd=211) 90 mg/dL CHOLESTEROL (BEAKER) (test gweq=408) 83 mg/dL HDL CHOLESTEROL (BEAKER) (test scny=064) 16 mg/dL LDL CHOLESTEROL CALCULATED (BEAKER) (test rpic=020) 49 mg/dL Triglyceride Reference Range: Low Risk <150 Borderline 150-199 High Risk 200-499 Very High Risk >=500Cholesterol Reference Range: Low Risk <200 Borderline 200-239 High Risk >240HDL Cholesterol Reference Range: Low Risk >=60 High Risk <40LDL Cholesterol Reference Range: Optimal <100 Near Optimal 100-129 Borderline 130-159 High 160-189 Very High >=190 RPR 2017-12-31 08:39:00* Test Item Value Reference Range Comments RPR SCREEN (BEAKER) (test bgfo=392) Nonreactive Nonreactive URINE [id number] 07:22:00* Test Item Value Reference Range Comments CULTURE (BEAKER) (test ohtl=6016) No growth CYTOMEGALOVIRUS ANTIBODY, [id number] 15:14:00* Test Item Value Reference Range Comments CYTOMEGALOVIRUS, IGG (BEAKER) (test oslm=5317) Positive Negative, Equivocal CMV IgG Result Interpretation: </=0.8 Al Negative 0.9-1.0 Al Equivocal >/=1.1 Al PositiveCYTOMEGALOVIRUS ANTIBODY, [id number] 15:14:00* Test Item Value Reference Range Comments CYTOMEGALOVIRUS IGM ANTIBODY (BEAKER) (test agqe=8124) Negative Negative, Equivocal CMV IgM Result Interpretation: </=0.8 Al Negative 0.9-1.0 Al Equivocal > /=1.1 Al PositiveEBV ANTIBODY, [id number] 15:14:00* Test Item Value Reference Range Comments ZIGGY ISLAS VIRAL CAPSID ANTIGEN IGG (BEAKER) (test yqfy=7385) Positive Negative, Equivocal Ziggy Islas Viral Capsid Antigen IgG Result Interpretation: </=0.8 Al Negative 0.9-1.0 Al Equivocal >/=1.1 Al PositiveEBV ANTIBODY, [id number] 15:14:00* Test Item Value Reference Range Comments ZIGGY ISLAS VIRAL CAPSID ANTIGEN IGM (BEAKER) (test jxwd=6373) Negative Negative, Equivocal Ziggy Islas Viral Capsid Antigen IgM Result Interpretation: </=0.8 Al Negative 0.9-1.0 Al Equivocal >/=1.1 Al PositiveVARICELLA ZOSTER ANTIBODY, [id number] 13:57:00* Test Item Value Reference Range Comments VARICELLA ZOSTER IGG (AL) (BEAKER) (test vjkf=4824) 4.1 VARICELLA ZOSTER RESULT INTERPRETATIONS: <=0.8 Al Nonreactive: Presumed non-immune to VZV 0.9-1.0 Al Equivocal >=1.1 Al Reactive: Presumed immune to VZVCOMPREHENSIVE METABOLIC [id number] 13:11:00* Test Item Value Reference Range Comments TOTAL PROTEIN (BEAKER) (test hjqp=068) 6.5 gm/dL 6.0-8.3 ALBUMIN (BEAKER) (test bxvc=6391) 3.8 g/dL 3.5-5.0 ALKALINE PHOSPHATASE (BEAKER) (test xaws=404) 45 U/L 40-150 BILIRUBIN TOTAL (BEAKER) (test ntzr=901) 0.6 mg/dL 0.2-1.2 SODIUM (BEAKER) (test ogtg=043) 136 meq/L 136-145 POTASSIUM (BEAKER) (test xfzx=049) 5.5 meq/L 3.5-5.1 CHLORIDE (BEAKER) (test npqf=583) 116 meq/L 98-107 CO2 (BEAKER) (test cngi=426) 14 meq/L 22-29 BLOOD UREA NITROGEN (BEAKER) (test odiv=492) 25 mg/dL 7-21 CREATININE (BEAKER) (test luvb=027) 4.05 mg/dL 0.57-1.25 GLUCOSE RANDOM (BEAKER) (test bany=851) 97 mg/dL 70-105 CALCIUM (BEAKER) (test jnrl=765) 9.3 mg/dL 8.4-10.2 AST (SGOT) (BEAKER) (test zjkf=274) 52 U/L 5-34 ALT (SGPT) (BEAKER) (test rimj=029) 30 U/L 6-55 EGFR (BEAKER) (test zppo=2030) 15 mL/min/1.73 sq m ESTIMATED GFR IS NOT ACCURATE CREATININE CLEARANCE IN PREDICTING GLOMERULAR FILTRATION RATE. ESTIMATED GFR IS NOT APPLICABLE FOR DIALYSIS PATIENTS. HEPATITIS B SURFACE [id number] 13:01:00* Test Item Value Reference Range Comments HEPATITIS B SURFACE ANTIGEN (2) (BEAKER) (test vhyz=3600) Nonreactive Nonreactive HEPATITIS B SURFACE [id number] 13:01:00* Test Item Value Reference Range Comments HEPATITIS B SURFACE ANTIBODY (BEAKER) (test flsn=009) 19.5 mIU/mL <8.0 HEPATITIS B CORE ANTIBODY, [id number] 13:01:00* Test Item Value Reference Range Comments HEPATITIS B CORE IGM ANTIBODY (BEAKER) (test dsjq=736) Nonreactive Nonreactive HEPATITIS C [id number] 13:01:00* Test Item Value Reference Range Comments HEPATITIS C ANTIBODY (BEAKER) (test ahbv=183) Nonreactive Nonreactive HIV-1 ANTIGEN WITH HIV-1/2 [id number] 13:01:00* Test Item Value Reference Range Comments HIV-1 ANTIGEN WITH HIV 1\T\2 ANTIBODY (2) (BEAKER) (test xekp=3093) Nonreactive Nonreactive URINALYSIS W/ [id number] 12:53:00* Test Item Value Reference Range Comments COLOR (BEAKER) (test atdb=927) Light Yellow CLARITY (BEAKER) (test tqnb=908) Clear SPECIFIC GRAVITY UA (BEAKER) (test vlbb=521) 1.009 1.001-1.035 PH UA (BEAKER) (test szfe=802) 5.5 5.0-8.0 PROTEIN UA (BEAKER) (test gjfl=528) 30 mg/dL Negative GLUCOSE UA (BEAKER) (test cdbh=245) Negative Negative KETONES UA (BEAKER) (test ctlh=176) Negative Negative BILIRUBIN UA (BEAKER) (test bfsc=984) Negative Negative BLOOD UA (BEAKER) (test mqei=723) Negative Negative NITRITE UA (BEAKER) (test occj=316) Negative Negative LEUKOCYTE ESTERASE UA (BEAKER) (test youc=852) Negative Negative UROBILINOGEN UA (BEAKER) (test cvjb=234) 0.2 mg/dL 0.2-1.0 RBC UA (BEAKER) (test qrxn=548) 0 /HPF WBC UA (BEAKER) (test svtc=148) < /HPF BACTERIA (BEAKER) (test mxdw=498) Occasional MUCUS (BEAKER) (test bhrq=6016) Occasional HYALINE CASTS (BEAKER) (test iubn=874) 2 /LPF SOURCE(BEAKER) (test makc=4481) URIC [id number] 12:50:00* Test Item Value Reference Range Comments URIC ACID (BEAKER) (test tkhe=075) 8.7 mg/dL 2.6-7.2 [id number] 12:50:00* Test Item Value Reference Range Comments PHOSPHORUS (BEAKER) (test bvha=419) 3.2 mg/dL 2.3-4.7 GAMMA GLUTAMYL TRANSFERASE (GGT)2017-12-29 12:50:00* Test Item Value Reference Range Comments GAMMA GLUTAMYL TRANSFERASE (BEAKER) (test irsn=281) 21 U/L 9-64 LACTATE DEHYDROGENASE (LDH)2017-12-29 12:50:00* Test Item Value Reference Range Comments LACTATE DEHYDROGENASE (BEAKER) (test bzvv=646) 210 U/L 125-220 PTH, [id number] 12:43:00* Test Item Value Reference Range Comments PARATHYROID HORMONE INTACT (BEAKER) (test euuh=698) 188.6 pg/mL 8.5-72.5 HEMOGLOBIN [id number] 12:41:00* Test Item Value Reference Range Comments HEMOGLOBIN A1C (BEAKER) (test xgvz=930) 4.2 % 4.3-6.1 [id number] 12:26:00* Test Item Value Reference Range Comments PROTIME (BEAKER) (test xksn=565) 15.8 seconds 11.7-14.7 INR (BEAKER) (test olgj=243) 1.3 <=5.9 PARTIAL THROMBOPLASTIN TIME (BEAKER) (test hsdk=703) 28.8 seconds 22.5-36.0 RECOMMENDED COUMADIN/WARFARIN INR THERAPY RANGESSTANDARD DOSE: 2.0 - 3.0 Inclu ivonne: PROPHYLAXIS for venous thrombosis, systemic embolization; TREATMENT for chica ous thrombosis and/or pulmonary embolus.HIGH RISK: Target INR is 2.5-3.5 for pat ients with mechanical heart valves.CBC W/PLT COUNT & AUTO [id number] 12:19:00* Test Item Value Reference Range Comments WHITE BLOOD CELL COUNT (BEAKER) (test duds=195) 6.2 K/ L 3.5-10.5 RED BLOOD CELL COUNT (BEAKER) (test pptl=118) 2.80 M/ L 4.63-6.08 HEMOGLOBIN (BEAKER) (test bwxo=551) 8.5 GM/DL 13.7-17.5 HEMATOCRIT (BEAKER) (test kifr=751) 28.0 % 40.1-51.0 MEAN CORPUSCULAR VOLUME (BEAKER) (test vybx=556) 100.0 fL 79.0-92.2 MEAN CORPUSCULAR HEMOGLOBIN (BEAKER) (test vmqr=018) 30.4 pg 25.7-32.2 MEAN CORPUSCULAR HEMOGLOBIN CONC (BEAKER) (test rddx=979) 30.4 GM/DL 32.3-36.5 RED CELL DISTRIBUTION WIDTH (BEAKER) (test hpvz=583) 16.4 % 11.6-14.4 PLATELET COUNT (BEAKER) (test tmnr=583) 206 K/CU MM 150-450 MEAN PLATELET VOLUME (BEAKER) (test pqng=936) 11.9 fL 9.4-12.4 NUCLEATED RED BLOOD CELLS (BEAKER) (test lcsb=651) 0 /100 WBC 0-0 NEUTROPHILS RELATIVE PERCENT (BEAKER) (test bndw=410) 67 % LYMPHOCYTES RELATIVE PERCENT (BEAKER) (test vhqz=766) 20 % MONOCYTES RELATIVE PERCENT (BEAKER) (test bxtk=670) 6 % EOSINOPHILS RELATIVE PERCENT (BEAKER) (test hkcd=154) 6 % BASOPHILS RELATIVE PERCENT (BEAKER) (test triq=481) 1 % NEUTROPHILS ABSOLUTE COUNT (BEAKER) (test kirz=461) 4.13 K/ L 1.78-5.38 LYMPHOCYTES ABSOLUTE COUNT (BEAKER) (test olhe=377) 1.24 K/ L 1.32-3.57 MONOCYTES ABSOLUTE COUNT (BEAKER) (test fnfz=227) 0.35 K/ L 0.30-0.82 EOSINOPHILS ABSOLUTE COUNT (BEAKER) (test yvbr=224) 0.36 K/ L 0.04-0.54 BASOPHILS ABSOLUTE COUNT (BEAKER) (test casy=661) 0.06 K/ L 0.01-0.08 IMMATURE GRANULOCYTES-RELATIVE PERCENT (BHANU) (test jspl=8408) 0 % 0-[address] [facility] [address] [address] Patient Name: COLLEEN KRAMER MR #: [id number] : 1950 Age/Sex: 66/M Req #: [id number] Adm Physician: Ordered by: GER MINAYA MD Report #: [id number] Location: CT Room/Bed: Procedure: [id number] CT/CT CHEST WO Exam Date: 07/15/17 Exam Time: 1500 REPORT STATUS: Signed PROCEDURE: CT CHEST WITHOUT CONTRAST CT scan of the chest WITHOUT intraveno us contrast, using standard protocol. TECHNIQUE: The chest was scanne d utilizing a multidetector helical scanner from the apex to the level of the adrenal glands. No IV contrast was administered per physician's request. Co max and sagittal multiplanar reformations were obtained. COMPARISON: None. INDICATIONS: SIMPLE CHRONIC BRONCHITIS FINDINGS: Exam mi ldly limited by breathing motion artifact in the lung bases. Lines/tube s: None. Lungs and Airways: Multiple linear opacities in the left lower l obe, likely represent subsegmental atelectasis or scarring. Focal atelectat ic changes in the left lower lobe secondary to eventration of the left hemidi aphragm (best visualized on sagittal image 111). Somewhat wedge-shaped subp leural opacity posterior to the aorta in the left lower lobe (series 3, image 65 with mild swirling of adjacent vessels and bronchi. Linear opacities in the lateral right upper lobe (series 3, images 54-58 and sagittal image 29-3 2), likely reflect subsegmental atelectasis or scarring. Mild wall thickeni ng in the central aspect of bronchi of the upper and lower lobes, more promin ent in the lower lobes. No consolidation, or masses. Airways are clear, with out endobronchial lesions. Pleura: No effusion, or pneumothorax. He art and mediastinum: Thyroid is unremarkable. Mild to moderate cardiomegaly. Aorta is non-aneurysmal. Main pulmonary artery is enlarged, measuring approxi mately 3.3 cm. The Lymph nodes: No mediastinal, hilar, or axillary adenopa thy. Abdomen: Limited nonenhanced views of the upper abdomen showed no abno rmalities in the liver, spleen, pancreas, right kidney or adrenal glands. 2.0 x 1.7 cm simple cyst in the superior pole. The left kidney (series 2, image 110). Bones: No aggressive lytic lesions. Degenerative disc changes in the thoracic spine. Soft tissues are unremarkable. IMPRESSION: 1. m ild wall thickening in the central aspect of bronchi in the upper and lower l obes, worse in the latter, likely reflecting sequela of chronic bronchitis. 2. Focal atelectatic changes in the left lower lobe secondary to eventration of the left hemidiaphragm. 3. Wedge-shaped subpleural opacity in the left low er lobe likely represents round atelectasis. Prior films, if available, would be helpful for comparison. If no prior films can be obtained, recommend f ollowup chest CT in 2 months to document resolution or stability. 4. Enlarged pulmonary artery suggesting pulmonary hypertension. Antoine Monterroso M.D. Dictated by: Antoine Monterroso M.D. on 07/15/2017 at 17:02 Electronically approved by: Antoine Monterroso M.D. on 07/15/2017 at 17: 02 Dictated By: ANTOINE MONTERROSO MD 01 Transcribed By: AGGIE on 07/15/171701 CYBER ANALYST Y TO: GER MINAYA MD
[2018-02-08 20:58] LABS: BASOPHILS % 0.5 % (0.0-1.0); EOSINOPHILS # (AUTO) 0.4 (0.0-0.4); HEMATOCRIT 23.1 % (38.2-49.6); HEMOGLOBIN 7.2 g/dL (14.0-18.0); LYMPHOCYTES % 35.6 % (18.0-39.1); MEAN CORPUSCULAR HEMOGLOBIN 30.3 pg (28-32); MEAN CORPUSCULAR HGB CONC 31.2 g/dL (31-35); MEAN CORPUSCULAR VOLUME 97.1 fL (81-99); MONOCYTES # (AUTO) 0.5 (0.2-0.8); NEUTROPHILS # (AUTO) 2.7 (2.1-6.9); NEUTROPHILS % 47.7 % (38.7-80.0); PLATELET COUNT 218 x10e3/uL (140-360); RED BLOOD COUNT 2.38 x10e6/uL (4.3-5.7); RED CELL DISTRIBUTION WIDTH 14.9 % (11.7-14.4)
[2018-02-08 21:11] LABS: ALBUMIN 3.1 g/dL (3.5-5.0); ALBUMIN/GLOBULIN RATIO 1.3 (0.8-2.0); CALCIUM 7.8 mg/dL (8.4-10.2); CREATININE, SERUM 3.37 mg/dL (0.72-1.25)
[2018-02-08 21:18] LABS: CREATINE KINASE MB 7.9 ng/mL (0-5.0)
[2018-02-08] MEDS ORDERED: DEXTROSE 50% SYRINGE 50 ML IV STA (22:00)
[2018-02-08] MEDS ORDERED: INSULIN REGULAR, HUMAN 100 UNIT/1 ML 3ML VIAL IV ONE (22:00)
[2018-02-08] MEDS ORDERED: SOD POLYSTYRENE SULFONATE SUSP 15 GM/60 ML BTL PO ONE (22:00)
[2018-02-08] MEDS ORDERED: CALCIUM GLUCONATE 10% INJ 4.65 MEQ in SODIUM CHLORIDE 0.9% 50ML 50 ML IV ONE (22:00)
--- OUTSIDE RECORDS SUMMARY | 2018-02-08 22:10 | XMS REPORT | Clinical Summary ---
Author Author SIDRA [employer] Organization [facility] [employer] [facility] Address Unknown Phone Unavailable Care Team Providers Care Imager Name Role Phone PCP Unavailable Allergies No [...] Patient Care Coordination Note Cardiology- Dr. Ely [phone] Problem Noted Date Stage 4 chronic kidney [...] Only Transplant Felicia Gongora Appointment (Per patients [id number] the patient will not be able to [...] chronic kidney DIFFERENTIAL 11:09 AM CDT disease ([facility]) Pre-transplant evaluation for chronic kidney disease Anemia of renal disease Secondary hypertension Abnormal blood chemistry URINE CULTURE Routine 12/29/2017 Stage 4 chronic kidney 11:09 AM CDT disease ([facility]) Pre-transplant evaluation for chronic kidney disease Anemia of renal disease Secondary hypertension Abnormal blood chemistry BLOOD TYPING, AUTOMATED Routine 12/29/2017 Stage 4 chronic kidney 11:08 AM CDT disease ([facility]) Pre-transplant evaluation for chronic kidney disease Anemia of renal disease Secondary hypertension Abnormal blood chemistry DIRECT AHG (TOMER)/DIRECT Routine 12/29/2017 Stage 4 chronic kidney CAMILO 11:08 AM CDT disease ([facility]) Pre-transplant evaluation for chronic kidney disease Anemia of renal disease Secondary hypertension Abnormal blood chemistry VARICELLA ZOSTER Routine 12/29/2017 Stage 4 chronic kidney ANTIBODY, IGG 11:08 AM CDT disease ([facility]) Pre-transplant evaluation for chronic kidney disease Anemia [...] AM CDT) Narrative Performed At FINAL REPORT [email or web address] Abdominal ultrasound dated 01/10/2018 Clinical information:assess iliac [...] MD Report Verified Date/Time:01/10/2018 18:50:43 Reading Location: [facility] [id number] Ultrasound Reading Room Procedure Note Interface, [...] Report Verified Date/Time: 01/10/2018 18:50:43 Reading Location: [facility] [id number] Ultrasound Reading Room Performing Organization Address City/State/Zipcode Phone Number [email or web address] * US abdomen complete (01/10/2018 11:28 AM CDT) Narrative Performed At FINAL REPORT [email or web address] Abdominal ultrasound dated 01/10/2018 Clinical information:assess iliac [...] MD Report Verified Date/Time:01/10/2018 18:50:43 Reading Location: [facility] [id number] Ultrasound Reading Room Procedure Note Interface, [...] Report Verified Date/Time: 01/10/2018 18:50:43 Reading Location: [facility] [id number] Ultrasound Reading Room Performing Organization Address City/[facility] Phone Number GE RIS * ECG 12 lead (01/10/2018 10:37 AM CDT) Narrative Performed At Ventricular Rate 52 BPM GE MUSE Atrial Rate 52 BPM P-R Interval 144 ms QRS Duration 86 ms Q-T Interval 412 ms QTC Calculation(Bazett) 383 ms P Ulster 36 degrees R Ulster 45 degrees T Ulster 71 degrees Sinus bradycardia Nonspecific T wave abnormality Abnormal ECG No previous ECGs available Confirmed by MD LAI PABLO ([id number]) on 01/10/2018 6:05:24 PM Procedure Note Interface, External Ris In - 01/10/2018 6:05 PM CDT Ventricular Rate 52 BPM Atrial Rate 52 BPM P-R Interval 144 ms QRS Duration 86 ms Q-T Interval 412 ms QTC Calculation(Bazett) 383 ms P Ulster 36 degrees R Ulster 45 degrees T [place]ster 71 degrees Sinus bradycardia Nonspecific T wave abnormality Abnormal ECG No previous ECGs available Confirmed by MD LAI PABLO ([id number]) on 01/10/2018 6:05:24 PM Performing Organization Address [facility] Phone Number GE MUSE * Type and Screen, Automated (01/10/2018 10:24 AM CDT) ABO/RH AUTOMATED (BEAKER) O POSITIVE [facility] Ab Scrn NEGATIVE [facility] Specimen Blood Performing Organization Address City/[facility]/Zipcode Phone Number [facility] [address] [place] [address] MEDICAL CENTER * Lipid panel (01/10/2018 10:24 AM CDT) Triglycerides 90 mg/dL [facility] Cholesterol 83 mg/dL [facility] HDL 16 mg/dL [facility] LDL Calculated 49 mg/dL [facility] Specimen Blood Narrative Performed At Triglyceride Reference Range: [facility] Low Risk <150 [facility] [id number] High Risk 200-499 Very High Risk>=500 Cholesterol Reference Range: Low Risk <200 [id number] High Risk>240 HDL Cholesterol Reference Range: Low Risk >=60 High Risk <40 LDL Cholesterol Reference Range: Optimal<100 Near [id number] [id number] [id number] Very High >=190 Performing Organization Address City/[facility] Phone Number [facility] [address] [place], [place] [phone] [facility] * HLA TYPING CII (12/29/2017 11:10 AM CDT) HLA-DR AG1 7 [facility] HLA-DR AG2 11 [facility] HLA-DR AG3-1 [facility] HLA-DR AG3-2 52 [facility] HLA-DR AG4-1 53 [facility] HLA-DR AG4-2 [facility] HLA-DR AG5-1 [facility] HLA-DR AG5-2 [facility] HLA-DQA1 AG 1-1 02 [facility] HLA-DQA1 AG 1-2 05 [facility] HLA-DQB1 AG 1-1 2 [facility] HLA-DQB1 AG 1-2 7 [facility] HLA-DPA1 AG 1-1 01 [facility] HLA-DPA1 AG 1-2 02 [facility] HLA-DPB1 AG 1-1 02:01 [facility] HLA-DPB1 AG 1-2 13:01 [facility] HLA-AG Notes [facility] HLA-AG Report Comments [facility] Specimen Blood Narrative Performed At Disclaimer: [facility] This test was developed and its performance characteristics determined by the [facility] Laboratory. It has not been cleared or [...] complexity clinical laboratory testing. Performing Organization Address City/State/[facility] Phone Number [facility] ONE Stanislav Jose, MS: [id number], [place] [address] CLIA#[id number] CAP#[id number] UNOS#[id number] * HLA TYPING CI (12/29/2017 11:10 AM CDT) HLA-A AG1 3 [facility] HLA-A AG2 33 [facility] HLA-B AG1 44 [facility] HLA-B AG2 51 [facility] HLA-C AG1 7 [facility] HLA-C AG2 15 [facility] HLA-B BW1 4 [facility] HLA-B BW2 4 [facility] HLA-AG Notes [facility] HLA-AG Report Comments [facility] Specimen Blood Narrative Performed At Disclaimer: [facility] This test was developed and its performance characteristics determined by the [facility] Laboratory. It has not been cleared or [...] complexity clinical laboratory testing. Performing Organization Address City/[facility] Phone Number [facility] ONE Stanislav Garcia, MS: [id number], [place] [address] CLIA#[id number] CAP#[id number] UNOS#[id number] * FLOW PRA CLASS II WITH REFLEX TO ANTIBODY SPECIFICITY (12/29/2017 11:10 AM CDT) Flow Class II Percent 0 [facility] Positive Flow Class Report [facility] Comments Specimen Blood Narrative Performed At Disclaimer: [facility] This test was developed and its performance characteristics determined by the [facility] Laboratory. It has not been cleared or [...] complexity clinical laboratory testing. Performing Organization Address City/State/[facility] Phone Number [facility] ONE Stanislav Garcia, MS: [id number], [place] [address] CLIA#[id number] CAP#[id number] UNOS#[id number] * FLOW PRA CLASS I WITH REFLEX TO ANTIBODY SPECIFICITY (12/29/2017 11:10 AM CDT) Flow Class I Percent 0 [facility] Positive Flow Class Report [facility] Comments Specimen Blood Narrative Performed At Disclaimer: [facility] This test was developed and its performance characteristics determined by the [facility] Laboratory. It has not been cleared or [...] complexity clinical laboratory testing. Performing Organization Address City/[facility] Phone Number [facility] ONE tSanislav Garcia, MS: [id number], [place] [address] CLIA#[id number] CAP#[id number] UNOS#[id number] * T Spot TB (12/29/2017 11:10 AM CDT) T-Spot TB Negative [facility] Neg Ctrl Spot Count 0 [facility] Panel A Spot 0 [facility] Panel B Spot 0 [facility] Pos Ctrl Spot Ct 0 [facility] Scan Result [facility] Specimen Blood Narrative Performed At Performing Organization Address City/[facility] Phone Number [facility] [address] [place] [address] LABORATORIES 100 * PT/aPTT (12/29/2017 11:09 AM CDT) Protime 15.8 (H) 11.7 - 14.7 seconds [facility] INR 1.3 <=5.9 [facility] PTT 28.8 22.5 - 36.0 seconds [facility] Specimen Blood Narrative Performed At RECOMMENDED COUMADIN/WARFARIN INR THERAPY RANGES [facility] STANDARD DOSE: 2.0 - 3.0 Includes: PROPHYLAXIS for venous thrombosis, [facility] systemic embolization; TREATMENT for venous thrombosis and/or pulmonary embolus. HIGH RISK: Target INR is 2.5-3.5 for patients with mechanical heart valves. Performing Organization Address [facility] Phone Number [facility] [address] [place] [address] MEDICAL CENTER * CBC with platelet count + automated diff (12/29/2017 11:09 AM CDT) WBC 6.2 3.5 - 10.5 K/L [facility] RBC 2.80 (L) 4.63 - 6.08 M/L [facility] Hemoglobin 8.5 (L) 13.7 - 17.5 GM/DL [facility] Hematocrit 28.0 (L) 40.1 - 51.0 % [facility] MCV 100.0 (H) 79.0 - 92.2 fL [facility] MCH 30.4 25.7 - 32.2 pg [facility] MCHC 30.4 (L) 32.3 - 36.5 GM/DL [facility] RDW 16.4 (H) 11.6 - 14.4 % [facility] Platelets 206 150 - 450 K/CU MM [facility] MPV 11.9 9.4 - 12.4 fL [facility] nRBC 0 0 - 0 /100 WBC [facility] % Neutros 67 % [facility] % Lymphs 20 % [facility] % Monos 6 % [facility] % Eos 6 % [facility] % Baso 1 % [facility] # Neutros 4.13 1.78 - 5.38 K/L [facility] # Lymphs 1.24 (L) 1.32 - 3.57 K/L [facility] # Monos 0.35 0.30 - 0.82 K/L [facility] # Eos 0.36 0.04 - 0.54 K/L [facility] # Baso 0.06 0.01 - 0.08 K/L [facility] Immature 0 0 - 1 % [facility] Granulocytes-Relative [facility] Specimen Blood Performing Organization Address City/[facility]/Zipcode Phone Number [facility] [address] [place] [address] [facility] * Urinalysis, Routine (12/29/2017 11:09 AM CDT) Color, UA Light Yellow [facility] Clarity, UA Clear [facility] Specific [place], UA 1.009 1.001 - 1.035 [facility] pH, UA 5.5 5.0 - 8.0 [facility] Protein, UA 30 mg/dL (A) Negative [facility] Glucose, UA Negative Negative [facility] Ketones, UA Negative Negative [facility] Bilirubin, UA Negative Negative [facility] Blood, UA Negative Negative [facility] Nitrite, UA Negative Negative [facility] Leukocytes, UA Negative Negative [facility] Urobilinogen, UA 0.2 0.2 - 1.0 mg/dL [facility] RBC, UA 0 /HPF [facility] WBC, UA <1 /HPF [facility] Bacteria, UA Occasional [facility] Mucus Occasional [facility] Hyaline Casts, UA 2 /LPF [facility] Specimen Source [facility] Specimen Urine Performing Organization Address [facility]/Zipcode Phone Number [facility] [address] [place], [place] [id number] [place] [address] * Urine Culture (12/29/2017 11:09 AM CDT) Result No growth [facility] Specimen Urine - Urine, Unspecified Source Performing Organization Address [facility] Phone Number [id number] [place] [address] * PTH, Intact (12/29/2017 11:09 AM CDT) PTH 188.6 (H) 8.5 - 72.5 pg/mL [facility] Specimen Blood Performing Organization Address [facility] Phone Number [address] * Hemoglobin A1c (12/29/2017 11:09 AM CDT) Hemoglobin A1C 4.2 (L) 4.3 - 6.1 % [facility] Specimen Blood Performing Organization Address City/[facility] Phone Number [id number] [place] [address] * HIV-1 Antigen with HIV-1/2 Antibody (12/29/2017 11:08 AM CDT) HIV-1 Antigen with HIV NON-REACTIVE Nonreactive [facility] 1&2 Antibody [facility] Specimen Blood Performing Organization Address City/[facility] Phone Number [address] * Hepatitis C Antibody (12/29/2017 11:08 AM CDT) Hepatitis C Ab NON-REACTIVE Nonreactive [facility] Specimen Blood Performing Organization Address [facility] Phone Number [address] * Cytomegalovirus antibody, IgM (12/29/2017 11:08 AM CDT) CMV IGM Negative Negative, Equivocal [facility] Specimen Blood Narrative Performed At CMV IgM Result Interpretation: [facility] </=0.8 Al Negative [facility] 0.9-1.0 Al Equivocal >/=1.1 Al Positive Performing Organization Address City/[facility] Phone Number [address] * Hepatitis B core antibody, IgM (12/29/2017 11:08 AM CDT) Hep B C IgM NON-REACTIVE Nonreactive [facility] Specimen Blood Performing Organization Address [facility] Phone Number [address] * EBV-VCA antibody, IgM (12/29/2017 11:08 AM CDT) GERARDO LEVINE VIRAL CAPSID Negative Negative, Equivocal [facility] ANTIGEN IGM [facility] Specimen Blood Narrative Performed At Gerardo Levine Viral Capsid Antigen IgM Result Interpretation: [facility] </=0.8 Al Negative [facility] 0.9-1.0 Al Equivocal >/=1.1 Al Positive Performing Organization Address [facility] Phone Number [address] * EBV-VCA antibody, IgG (12/29/2017 11:08 AM CDT) GERARDO LEVINE VIRAL CAPSID Positive (A) Negative, Equivocal [facility] ANTIGEN IGG [facility] Specimen Blood Narrative Performed At Gerardo Levine Viral Capsid Antigen IgG Result Interpretation: [facility] </=0.8 Al Negative [facility] 0.9-1.0 Al Equivocal >/=1.1 Al Positive Performing Organization Address [facility] Phone Number [address] * Blood typing, automated (12/29/2017 11:08 AM CDT) ABO/RH AUTOMATED (BEAKER) O POSITIVE [facility] Specimen Blood Performing Organization Address City/[facility] Phone Number [id number] [place] [address] * RPR (12/29/2017 11:08 AM CDT) RPR Nonreactive Nonreactive [facility] Specimen Blood Performing Organization Address [facility] Phone Number [phone] [place] [address] * Hepatitis B surface antibody (12/29/2017 11:08 AM CDT) Hep B S Ab 19.5 (H) <8.0 mIU/mL [facility] Specimen Blood Performing Organization Address [facility] Phone Number [address] * Hepatitis B surface antigen (12/29/2017 11:08 AM CDT) hepatitis B Surface Ag NON-REACTIVE Nonreactive [facility] Specimen Blood Performing Organization Address [facility] Phone Number [address] * Cytomegalovirus antibody, IgG (12/29/2017 11:08 AM CDT) CYTOMEGALOVIRUS, IGG Positive (A) Negative, Equivocal [facility] Specimen Blood Narrative Performed At CMV IgG Result Interpretation: [facility] </=0.8 Al Negative [facility] 0.9-1.0 Al Equivocal >/=1.1 AlPositive Performing Organization Address [facility] Phone Number [address] * Direct AHG (TOMER)/Direct Camilo (12/29/2017 11:08 AM CDT) Direct AHG-IGG NEGATIVE [facility] Direct AHG-C3B, C3D NEGATVIE [facility] Specimen Blood Performing Organization Address [facility]/State/Zipcode Phone Number [address] * Varicella Zoster Antibody, IgG (12/29/2017 11:08 AM CDT) Varicella IgG 4.1 [facility] Specimen Blood Narrative Performed At VARICELLA ZOSTER RESULT INTERPRETATIONS: [facility] <=0.8 AlNonreactive:Presumed non-immune to VZV [facility] 0.9-1.0 AlEquivocal >=1.1 AlReactive:Presumed immune to VZV Performing Organization Address City/[facility] Phone Number [address] * Uric Acid (12/29/2017 11:08 AM CDT) Uric Acid 8.7 (H) 2.6 - 7.2 mg/dL [facility] Specimen Blood Performing Organization Address City/[facility] Phone Number [address] * Phosphorus (12/29/2017 11:08 AM CDT) Phosphorus 3.2 2.3 - 4.7 mg/dL [facility] Specimen Blood Performing Organization Address City/[facility] Phone Number [address] * Lactate Dehydrogenase (LDH) (12/29/2017 11:08 AM CDT) LDH 210 125 - 220 U/L [facility] Specimen Blood Performing Organization Address City/[facility] Phone Number [address] * Gamma Glutamyl Transferase (GGT) (12/29/2017 11:08 AM CDT) GGT 21 9 - 64 U/L [facility] Specimen Blood Performing Organization Address City/[facility] Phone Number [place] [address] [place] [address] [facility] * Comprehensive metabolic panel (12/29/2017 11:08 AM CDT) Protein, Total 6.5 6.0 - 8.3 gm/dL [facility] Albumin 3.8 3.5 - 5.0 g/dL [facility] Alkaline Phosphatase 45 40 - 150 U/L [facility] Total Bilirubin 0.6 0.2 - 1.2 mg/dL [facility] Sodium 136 136 - 145 meq/L [facility] Potassium 5.5 (H) 3.5 - 5.1 meq/L [facility] Chloride 116 (H) 98 - 107 meq/L [facility] CO2 14 (L) 22 - 29 meq/L [facility] BUN 25 (H) 7 - 21 mg/dL [facility] Creatinine 4.05 (H) 0.57 - 1.25 mg/dL [facility] Glucose 97 70 - 105 mg/dL [facility] Calcium 9.3 8.4 - 10.2 mg/dL [facility] AST 52 (H) 5 - 34 U/L [facility] ALT 30 6 - 55 U/L [facility] EGFR 15Comment: ESTIMATED GFR IS mL/min/1.73 sq m [facility] NOT ACCURATE CREATININE [facility] CLEARANCE IN PREDICTING GLOMERULAR FILTRATION RATE. ESTIMATED GFR IS NOT APPLICABLE FOR DIALYSIS PATIENTS. Specimen Blood Performing Organization Address City/State/Zipcode Phone Number [place] [phone] [place], [place] [phone] [facility] * Ultrasound retroperitoneal complete (10/25/2017) Narrative Performed [...]
[2018-02-08] MEDS ORDERED: SODIUM CHLORIDE 0.9% 250ML 250 ML IV ONE (22:15)
[2018-02-08] MEDS: INSULIN REGULAR, HUMAN 3ML VL 100 UNIT in SODIUM CHLORIDE 0.9% 100 ML 99 ML IV SCH ×2 (22:50)
[2018-02-09] VITALS (9 sets, daily range): BP systolic 100–132; BP diastolic 59–74
[2018-02-09] MEDS ORDERED: SOD POLYSTYRENE SULFONATE SUSP 15 GM/60 ML BTL PR NR (10:00)
[2018-02-09] MEDS ORDERED: EPOETIN ALFA 10000 UNIT/ML VIAL SC NR (10:00)
[2018-02-09] MEDS ORDERED: SODIUM BICARBO650 MG PO (10:18)
[2018-02-09] MEDS ORDERED: [UNRECOGNIZED DRUG - OTHER] PO (10:18)
[2018-02-09] MEDS ORDERED: CARVEDILOL12.5 MG PO (10:18)
[2018-02-09] MEDS ORDERED: FUROSEMIDE INJ 10 MG/ML 4 ML VIAL IV NR (10:30)
--- NOTE | 2018-02-09 11:09 | History and Physical ---
This 67-year-old male patient presented to the emergency room with complaints of shortness of breath and severe weakness. HISTORY OF PRESENT ILLNESS: Mr. Sabillon is a 67-year-old male patient with a known history of chronic kidney disease and anemia. He presented to the emergency room with complaint of severe hyperkalemia. The patient had outpatient labs done and was found to have severe hyperkalemia with potassium 6.8 and hemoglobin of 7.21 with weakness, shortness of breath and marked pallor. The patient was advised to come to the emergency room. PAST MEDICAL HISTORY: The patient is also under the care of Dr. Govea, nephrology. The patient in the past needed a kidney transplant, so he was referred to [facility]. The patient had preliminary workup done. ALLERGIES: No known drug allergies. SOCIAL HISTORY: Denies smoking. Denies using alcohol. FAMILY HISTORY: Negative. REVIEW OF SYSTEMS: As per history of present illness. PHYSICAL EXAMINATION GENERAL: He is an elderly male patient lying in bed. He has marked pallor. VITALS: Temperature 98, pulse rate 88, respirations 20, blood pressure 110/70. HEENT: Normocephalic, atraumatic. Marked pallor present. LUNGS: Bilateral equal air entry. No rales. No rhonchi. HEART: S1 and S2 regular. A systolic murmur is present. ABDOMEN: Soft. Bowel sounds are present. NEUROLOGIC: Nonfocal. No neurologic deficit. ADMISSION IMPRESSION AND DIAGNOSIS: Hyperkalemia and severe anemia. The patient has been given treatment for hyperkalemia in the emergency room with IV calcium gluconate, D50, insulin and Kayexalate. The patient will get 2 units of blood. We will give Lasix 40 after each unit. We will give Epogen and also obtain hematology and nephrology consultations. Job#: [id number]
[2018-02-09] MEDS ORDERED: SODIUM CHLORIDE 0.9% 250ML 250 ML ONE ×2 (11:35→18:56)
[2018-02-09] MEDS: SODIUM BICARBONATE 650 MG TAB PO SCH (11:36)
[2018-02-09] MEDS: CARVEDILOL 12.5 MG TAB PO SCH (16:47)
[2018-02-09] MEDS: FUROSEMIDE INJ 10 MG/ML 4 ML VIAL IV PRN ×2 (16:50→22:08)
[2018-02-09] MEDS: INSULIN REGULAR, HUMAN 3ML VL 100 UNIT in SODIUM CHLORIDE 0.9% 100 ML 99 ML IV SCH ×2 (18:04)
[2018-02-10] VITALS: BP 103/65
[2018-02-10 04:00] VITALS: BP 101/64
[2018-02-10 05:03] LABS: BASOPHILS # (AUTO) 0.1 (0.0-0.1); BASOPHILS % 0.9 % (0.0-1.0); EOSINOPHILS # (AUTO) 0.4 (0.0-0.4); EOSINOPHILS % 5.8 % (0.0-6.0); HEMATOCRIT 29.4 % (38.2-49.6); HEMOGLOBIN 9.6 g/dL (14.0-18.0); LYMPHOCYTES # (AUTO) 2.2 (1.0-3.2); LYMPHOCYTES % 32.8 % (18.0-39.1); MEAN CORPUSCULAR HEMOGLOBIN 30.6 pg (28-32); MEAN CORPUSCULAR HGB CONC 32.7 g/dL (31-35); MEAN CORPUSCULAR VOLUME 93.6 fL (81-99); MONOCYTES # (AUTO) 0.6 (0.2-0.8); MONOCYTES % 9.2 % (4.4-11.3); NEUTROPHILS # (AUTO) 3.4 (2.1-6.9); PLATELET COUNT 190 x10e3/uL (140-360); RED BLOOD COUNT 3.14 x10e6/uL (4.3-5.7); RED CELL DISTRIBUTION WIDTH 15.5 % (11.7-14.4)
[2018-02-10 05:33] LABS: ALBUMIN 2.9 g/dL (3.5-5.0); ALBUMIN/GLOBULIN RATIO 1.1 (0.8-2.0); ANION GAP 12.3 mmol/L (8-16); CALCIUM 8.3 mg/dL (8.4-10.2); CREATININE, SERUM 3.51 mg/dL (0.72-1.25); POTASSIUM 5.3 mmol/L (3.5-5.1)
[2018-02-10 08:24] VITALS: BP 112/87
[2018-02-10] MEDS ORDERED: VELTASSA PO SCH (09:00)
[2018-02-10] MEDS: SODIUM BICARBONATE 650 MG TAB PO SCH (09:09)
[2018-02-10] MEDS: CARVEDILOL 12.5 MG TAB PO SCH ×2 (09:43→17:00)
[2018-02-10 11:27] VITALS: BP 108/66
--- NOTE | 2018-02-10 11:50 | Discharge Summary ---
He is a 67-year-old male patient presented with severe hyperkalemia and severe anemia. ADMITTING IMPRESSIONS/DIAGNOSES 1. Severe anemia. 2. Severe hyperkalemia. HOSPITAL COURSE SUMMARY: Patient was admitted with the above diagnoses. Patient was given treatment for hyperkalemia and patient was monitored in the telemetry unit for cardiac monitoring. Nephrology and hematology consultation was done. Patient was given Procrit 1 shot. Patient's potassium mildly improving and hemoglobin improved to 9.2. Now upon stabilization, patient will be discharged home and patient was advised to followup on strict low potassium diet. Patient was advised to take his Veltassa medication to lower his potassium regularly and patient was advised to followup with hematology as outpatient. Patient is to follow up with nephrology for chronic kidney disease management. GER MINAYA MD Job#: [id number] TOMMIE
[2018-02-10] MEDS ORDERED: SOD POLYSTYRENE SULFONATE SUSP 15 GM/60 ML BTL PO NR (14:00)
[2018-02-10] MEDS ORDERED: LACTULOSE SYRUP 20 GM/30 ML UDC PO NR (14:00)
[2018-02-10] MEDS ORDERED: SODIUM BICARBONATE 8.4% 150 ML in DEXTROSE 5% 1,000 ML IV SCH (14:30)
[2018-02-10 15:44] LABS: ANION GAP 15.4 mmol/L (8-16); CALCIUM 7.7 mg/dL (8.4-10.2); CREATININE, SERUM 3.44 mg/dL (0.72-1.25); POTASSIUM 4.4 mmol/L (3.5-5.1)
[2018-02-10 16:07] LABS: FERRITIN 457.43 ng/mL (21.81-274.66)
[2018-02-10 16:54] VITALS: BP 109/74
--- NOTE | 2018-02-10 19:54 | Consultation ---
DATE OF CONSULTATION: February 10, 2018 REASON FOR CONSULTATION: Abnormal kidney function. HISTORY OF PRESENT ILLNESS: Mr. Sabillon is known to our nephrology service. Has underlying history of advanced kidney failure. Not yet close to dialysis. He has multiple comorbids including hypertension, left ventricular hypertrophy, normal ejection fraction, history of anemia, seen by hematology. Admitted with hyperkalemia. Took several doses of Kayexalate to bring it down. Son is very involved in his care. He pretty much tailors the patient's diet, tailors the patient's medications. The patient has been enrolled in kidney transplant program. He is currently laying supine, perfectly awake, alert and in no apparent distress. Most recent potassium 5.3. I dosed him with some Kayexalate earlier. Potassium is now down to 4.6. Bicarbonate 15, creatinine 3.5, hemoglobin 9.6. SOCIAL HISTORY: Patient does not smoke or drink. He is a vegetarian. ALLERGIES: DENIES ANY DRUG ALLERGIES. CURRENT MEDICATIONS: Patient on fenofibrate, carvedilol, insulin and sodium bicarbonate. I have asked the patient to stop fenofibrate because of long-term side effects of fenofibrate causing possible interstitial nephritis and kidney damage. PHYSICAL EXAMINATION: GENERAL: Awake, alert and lying supine. No apparent distress. VITALS: Blood pressure 112/87, pulse rate 73 and afebrile. HEAD AND NECK: Cornea clear. Oral mucosa moist. Neck veins flat. LUNGS: Relatively clear. HEART: S1 and S2 audible. ABDOMEN: Otherwise soft and nontender. LOWER EXTREMITY EXAMINATION: Shows no edema. IMPRESSION AND PLAN: Hyperkalemia, distal renal tubular acidosis, advanced kidney failure. Chronic kidney disease, stage 4. Patient to follow up in the office. I strictly advised against the use tomatoes, strawberries, avocados, grapes, oranges, citrus fruits, bananas. Dietary modification discussed. Son has been told several times today to come to our office to get a more detailed list of food and fruit which are rich in potassium so that they can get better educated to avoid. These medications, sodium bicarbonate tablets have been increased to 2 tablets 3 times a day and that has been discussed with both the patient and son. Fenofibrate has been stopped, which I have discussed with both son and the patient. Will follow up in the office. Job#: [id number]
== END 2018-02-10 19:37 | disposition home or self-care (01) ==
LOC: ER 19:37 → ERHOLD 20:47 → IMCU 23:58
PROVIDERS: ADMIT Internal Medicine; ATTEND Internal Medicine
DX: E87.5 Hyperkalemia (principal); N17.9 Acute kidney failure, unspecified; D63.1 Anemia in chronic kidney disease; N25.89 Other disorders resulting from impaired renal tubular function; I12.9 Hypertensive chronic kidney disease with stage 1 through stage 4 chronic kidney disease, or unspecified chronic kidney disease; N18.4 Chronic kidney disease, stage 4 (severe)
CPT/HCPCS: 36415 ×3; 36430; 80048; 80053 ×2; 82270; 82550 ×2; 82553; 82728; 83880; 84484; 85025 ×2; 86850; 86900; 86920; 93005; 93306; 99284; G0378 ×3; J0610; J1817; J1940; J7050; J7799; P9016; Q4081; J7070

== ENCOUNTER → 2020-10-28 | Outpatient (CLI) | payer MEDICARE ==
[~2020-10-28] MED LIST: CARVEDILOL12.5 MG PO; SODIUM BICARBO650 MG PO; [UNRECOGNIZED DRUG - OTHER] PO
== END ==
LOC: RAD 14:28
PROVIDERS: ATTEND Internal Medicine
DX: J41.0 Simple chronic bronchitis (principal)
CPT/HCPCS: 71046